=== PATIENT | female | born 1930 | race Asian ===

== ENCOUNTER 2016-08-27 09:24 | Inpatient (IN) | payer MEDICAID, MEDICARE ==
[~2016-08-27] VITALS: Ht 152.4 cm; Wt 72.6 kg
[2016-08-27 09:31] VITALS: BP 149/69; PULSE 75; RESP 18; TEMP 97.9; O2SAT 87
[2016-08-27] MEDS ORDERED: NACL 0.9% 1,000 ML IV SCH (09:34)
[2016-08-27] MEDS ORDERED: IPRATROPIUM/ALBUTEROL SULFATE 3 ML AMPUL.NEB INH ONE (09:45)
[2016-08-27 10:01] LABS: BLOOD GAS PH 7.341 (7.350-7.450)
[2016-08-27 10:02] LABS: ABG TOTAL HEMOGLOBIN 13.8 G/dL (12.0-18.0); BLOOD GAS BASE EXCESS 0.1 mmol/L (-3.0-3.0)
[2016-08-27 10:03] LABS: BLOOD GAS COHb% 1.4 % (0.5-1.5); BLOOD GAS HHB 14.3 % (0.0-6.0)
[2016-08-27] MEDS ORDERED: PIPERACILLIN/TAZOBACTAM 3.375 GM/VIAL (ZOSYN) IV ONE (10:10)
[2016-08-27 10:11] LABS: ANION GAP 9 (5-15); CALCIUM 8.7 mg/dL (8.4-11.0); CHLORIDE 96 mmol/L (98-107); CREATININE 0.64 mg/dL (0.55-1.30); GLUCOSE 153 mg/dL (70-99); POTASSIUM 3.8 mmol/L (3.5-5.1); SODIUM SERUM 132 mmol/L (136-145); UREA NITROGEN, BLOOD 17 mg/dL (8-21)
[2016-08-27 10:15] LABS: PROTHROMBIN TIME 11.1 SECS (9.5-12.5)
[2016-08-27] MEDS ORDERED: NACL 0.9% 1,000 ML IV ONE (10:15)
[2016-08-27] MEDS ORDERED: methylPREDNISolone SOD SUCC/PF 62.5 MG/ML VIAL IVP ONE (10:15)
[2016-08-27] MEDS ORDERED: PIPERACILLIN/TAZO 3.375 GM in NS 50 ML IV ONE (10:15)
[2016-08-27 10:16] LABS: ALANINE AMINOTRANSFERASE 18 U/L (12-78); ALBUMIN 3.4 g/dL (3.4-4.8); ASPARTATE AMINOTRANSFERASE 17 U/L (10-37); TOTAL BILIRUBIN 0.6 mg/dL (0.0-1.0); TOTAL PROTEIN, SERUM 7.5 g/dL (6.4-8.3)
[2016-08-27 10:18] LABS: BASOPHILS % (AUTO) 0.2 % (0.0-2.0); EOSINOPHILS % (AUTO) 0.1 % (0.0-4.0); HEMATOCRIT 38.8 % (36-48); LYMPHOCYTES # (AUTO) 0.3 K/uL (1.0-5.5); LYMPHOCYTES % (AUTO) 3.5 % (20.5-51.5); MEAN CORPUSCULAR HEMOGLOBIN 29 pg (27-31); MEAN CORPUSCULAR HGB CONC 34 % (32-36); MEAN CORPUSCULAR VOLUME 86 fL (79.0-98.0); MONOCYTES # (AUTO) 0.3 K/uL (0.0-1.0); MONOCYTES % (AUTO) 3.5 % (1.7-9.3); NEUTROPHILS % (AUTO) 92.7 % (40.0-70.0); PLATELET COUNT (AUTO) 259 K/uL (130-430); RED BLOOD CELL COUNT(AUTO) 4.53 MIL/uL (4.2-6.2); RED CELL DISTRIBUTION WIDTH 12.3 % (9.0-15.0); WHITE BLOOD COUNT (AUTO) 9.6 K/uL (4.8-10.8)
[2016-08-27] MEDS ORDERED: GUAI-689 PO (10:30)
[2016-08-27] MEDS ORDERED: FLUO60TA PO (10:30)
[2016-08-27] MEDS ORDERED: OXYB15TA9 PO (10:30)
[2016-08-27] MEDS ORDERED: AMLO5TAB92 PO (10:30)
[2016-08-27] MEDS ORDERED: MECL-123 PO (10:30)
[2016-08-27] MEDS ORDERED: OMEP20CA10 PO (10:30)
[2016-08-27] MEDS ORDERED: GABA-531 PO (10:30)
[2016-08-27] MEDS ORDERED: ATEN50TA PO (10:30)
[2016-08-27] MEDS ORDERED: GABA-533 PO (10:30)
[2016-08-27] MEDS ORDERED: PSEU120T56 PO (10:30)
[2016-08-27] MEDS ORDERED: SUCR1TAB78 PO (10:33)
[2016-08-27] MEDS ORDERED: FURO-150 PO (10:33)
[2016-08-27 10:40] LABS: BILIRUBIN,URINE NEGATIVE (NEGATIVE); BLOOD, URINE NEGATIVE (NEGATIVE); CLARITY/URINE CLEAR (CLEAR); COLOR,URINE YELLOW (YELLOW); GLUCOSE,URINE NEGATIVE (NEGATIVE); KETONES,URINE NEGATIVE (NEGATIVE); LEUKOCYTE ESTERASE ,URINE 1+ (NEGATIVE); NITRITE, URINE POSITIVE (NEGATIVE); PROTEIN URINE TRACE (NEGATIVE); UROBILINOGEN,URINE 0.2 (0.2-1.0)
[2016-08-27 10:50] LABS: BACTERIA,URINE FEW /HPF (None Seen); MUCUS,URINE None Seen /LPF (None Seen); RBC,URINE 0-3 /HPF (0-3)
[2016-08-27] MEDS ORDERED: cefTRIAXone 1 GM IVPB PREMIX 50 ML IV ONE (11:00)
[2016-08-27] MEDS ORDERED: cefTRIAXone 1 GM VIAL ONE (11:08)
[2016-08-27 11:42] VITALS: BP 149/65; PULSE 79; RESP 12; TEMP 97.2; O2SAT 98
[2016-08-27] MEDS: OMEPRAZOLE 20 MG CAPSULE.DR (PriLOSEC) PO SCH (14:00)
[2016-08-27] MEDS: SUCRALFATE 1 GM TABLET PO SCH ×2 (15:21→20:17)
[2016-08-27] MEDS ORDERED: OMEPRAZOLE 20 MG CAPSULE.DR (PriLOSEC) PO ONE (15:30)
[2016-08-27 16:00] VITALS: BP 161/87; PULSE 69; RESP 22; TEMP 98.4; O2SAT 94
[2016-08-27] MEDS ORDERED: ACETAMINOPHEN 325 MG TABLET PO PRN (16:00)
[2016-08-27 16:46] VITALS: BP 149/65; PULSE 79
[2016-08-27] MEDS ORDERED: cefTRIAXone 1 GM in D5W 50 ML IV ONE (17:00)
[2016-08-27 19:41] VITALS: BP 140/80; PULSE 67; RESP 19; TEMP 99.3; O2SAT 98
[2016-08-27] MEDS: GABAPENTIN 300 MG CAPSULE PO SCH (20:17)
[2016-08-27] MEDS ORDERED: IPRATROPIUM/ALBUTEROL SULFATE 3 ML AMPUL.NEB INH SCH (23:00)
[2016-08-28] VITALS (7 sets, daily range): BP systolic 132–160; BP diastolic 67–80; PULSE 65–69; RESP 18–20; TEMP 96.9–98.6; O2SAT 93–99
[2016-08-28] MEDS: IPRATROPIUM/ALBUTEROL SULFATE 3 ML AMPUL.NEB INH SCH ×4 (03:40→20:08)
[2016-08-28] MEDS: FLUoxetine HCL 20 MG CAPSULE (PROzac) PO SCH (08:44)
[2016-08-28] MEDS: amLODIPine BESYLATE 5 MG TABLET PO SCH (08:44)
[2016-08-28] MEDS: cefTRIAXone 1 GM in D5W 50 ML IV SCH (08:44)
[2016-08-28] MEDS: SUCRALFATE 1 GM TABLET PO SCH ×3 (08:44→22:28)
[2016-08-28] MEDS: OMEPRAZOLE 20 MG CAPSULE.DR (PriLOSEC) PO SCH (08:44)
[2016-08-28 09:20] LABS: BASOPHILS % (AUTO) 0.6 % (0.0-2.0); EOSINOPHILS % (AUTO) 0.1 % (0.0-4.0); HEMATOCRIT 34.6 % (36-48); HEMOGLOBIN 11.8 g/dL (12.0-16.0); LYMPHOCYTES # (AUTO) 0.9 K/uL (1.0-5.5); LYMPHOCYTES % (AUTO) 12.6 % (20.5-51.5); MEAN CORPUSCULAR HEMOGLOBIN 29 pg (27-31); MEAN CORPUSCULAR HGB CONC 34 % (32-36); MEAN CORPUSCULAR VOLUME 85 fL (79.0-98.0); MONOCYTES # (AUTO) 0.6 K/uL (0.0-1.0); MONOCYTES % (AUTO) 7.8 % (1.7-9.3); NEUTROPHILS % (AUTO) 78.9 % (40.0-70.0); PLATELET COUNT (AUTO) 233 K/uL (130-430); RED BLOOD CELL COUNT(AUTO) 4.06 MIL/uL (4.2-6.2); RED CELL DISTRIBUTION WIDTH 12.3 % (9.0-15.0); WHITE BLOOD COUNT (AUTO) 7.5 K/uL (4.8-10.8)
[2016-08-28] MEDS ORDERED: MILK OF MAGNESIA 30 ML UDC PO ONE (09:30)
[2016-08-28 09:32] LABS: ANION GAP 7 (5-15); CALCIUM 8.6 mg/dL (8.4-11.0); CHLORIDE 97 mmol/L (98-107); CREATININE 0.86 mg/dL (0.55-1.30); GLUCOSE 136 mg/dL (70-99); POTASSIUM 3.5 mmol/L (3.5-5.1); SODIUM SERUM 133 mmol/L (136-145); UREA NITROGEN, BLOOD 17 mg/dL (8-21)
[2016-08-28] MEDS ORDERED: ASPIRIN 81 MG TABLET(ECOTRIN) PO ONE (18:00)
[2016-08-28] MEDS: ASPIRIN 81 MG TABLET(ECOTRIN) PO SCH (18:29)
[2016-08-28] MEDS: GABAPENTIN 300 MG CAPSULE PO SCH (22:27)
[2016-08-28] MEDS: ZOLPIDEM TARTRATE 5 MG TABLET PO PRN (22:28)
[2016-08-29] VITALS (8 sets, daily range): BP systolic 114–160; BP diastolic 62–99; PULSE 64–88; RESP 16–20; TEMP 97–98.6; O2SAT 94–100
[2016-08-29] MEDS: IPRATROPIUM/ALBUTEROL SULFATE 3 ML AMPUL.NEB INH SCH ×3 (01:00→16:57)
[2016-08-29] MEDS ORDERED: ENOXAPARIN SODIUM 40 MG/0.4 ML SYRINGE SUBCUT ONE (10:15)
[2016-08-29] MEDS: cefTRIAXone 1 GM in D5W 50 ML IV SCH (10:51)
[2016-08-29] MEDS: SUCRALFATE 1 GM TABLET PO SCH ×3 (10:51→20:55)
[2016-08-29] MEDS: FLUoxetine HCL 20 MG CAPSULE (PROzac) PO SCH (10:52)
[2016-08-29] MEDS: OMEPRAZOLE 20 MG CAPSULE.DR (PriLOSEC) PO SCH (10:52)
[2016-08-29] MEDS: amLODIPine BESYLATE 5 MG TABLET PO SCH (10:52)
[2016-08-29] MEDS: ASPIRIN 81 MG TABLET(ECOTRIN) PO SCH (10:52)
[2016-08-29] MEDS ORDERED: guaiFENesin ER 600 MG TAB PO ONE (15:15)
[2016-08-29] MEDS: guaiFENesin ER 600 MG TAB PO SCH (20:55)
[2016-08-29] MEDS: GABAPENTIN 300 MG CAPSULE PO SCH (20:55)
[2016-08-29] MEDS ORDERED: ONDANSETRON HCL 4 MG/2 ML VIAL IVP PRN (23:30)
[2016-08-29] MEDS ORDERED: PANTOPRAZOLE SODIUM 40 MG TAB PO ONE (23:30)
[2016-08-30] MEDS: ZOLPIDEM TARTRATE 5 MG TABLET PO PRN (00:07)
[2016-08-30] MEDS: IPRATROPIUM/ALBUTEROL SULFATE 3 ML AMPUL.NEB INH SCH ×4 (00:37→18:08)
[2016-08-30 03:54] VITALS: BP 137/79; PULSE 100; RESP 18; TEMP 99.3; O2SAT 92
[2016-08-30 08:25] VITALS: BP 145/72; PULSE 98; RESP 16; TEMP 98.6; O2SAT 98
[2016-08-30] MEDS: ASPIRIN 81 MG TABLET(ECOTRIN) PO SCH (08:53)
[2016-08-30] MEDS: FLUoxetine HCL 20 MG CAPSULE (PROzac) PO SCH (08:53)
[2016-08-30] MEDS: guaiFENesin ER 600 MG TAB PO SCH (08:54)
[2016-08-30] MEDS: amLODIPine BESYLATE 5 MG TABLET PO SCH (08:54)
[2016-08-30] MEDS: SUCRALFATE 1 GM TABLET PO SCH ×2 (08:54→15:00)
[2016-08-30] MEDS: cefTRIAXone 1 GM in D5W 50 ML IV SCH (08:54)
[2016-08-30] MEDS ORDERED: ENOXAPARIN SODIUM 40 MG/0.4 ML SYRINGE SUBCUT SCH (09:00)
[2016-08-30] MEDS ORDERED: PANTOPRAZOLE SODIUM 40 MG TAB PO SCH (09:00)
[2016-08-30 12:25] VITALS: BP 137/78; PULSE 89; RESP 18; TEMP 98; O2SAT 97
[2016-08-30 12:33] VITALS: BP 146/82; PULSE 90; RESP 19; TEMP 98.8; O2SAT 99
== END 2016-08-30 15:25 | disposition home or self-care (01) | DRG 463 ==
LOC: SED 09:24 → EDBD 09:24 → STU 11:06
PROVIDERS: ADMIT Internal Medicine; ATTEND Internal Medicine
DX: N39.0 Urinary tract infection, site not specified (principal); G93.41 Metabolic encephalopathy; E87.1 Hypo-osmolality and hyponatremia; G62.9 Polyneuropathy, unspecified; G45.9 Transient cerebral ischemic attack, unspecified; R54 Age-related physical debility; J20.9 Acute bronchitis, unspecified; E66.9 Obesity, unspecified; H91.90 Unspecified hearing loss, unspecified ear; I10 Essential (primary) hypertension; R09.02 Hypoxemia; Z91.81 History of falling; M17.0 Bilateral primary osteoarthritis of knee; F32.9 Major depressive disorder, single episode, unspecified; J30.9 Allergic rhinitis, unspecified; K42.9 Umbilical hernia without obstruction or gangrene; M79.606 Pain in leg, unspecified; R47.81 Slurred speech; Z68.31 Body mass index [BMI] 31.0-31.9, adult
CPT/HCPCS: 36415; 36600; 70450-TC; 70551; 71010; 80048; 80053; 81000-TC; 82803-TC; 83605; 83880; 84443-TC; 84484; 85025; 85610-TC; 85730-TC; 87040-TC; 93005; 93880; 94640; 94760; 96365; 96367; 96375; 97110-GP; 97116-GP; 97530-GP; J0696; J1650; J2405; J2543; J2930; J7030; J7050; J7060